=== PATIENT | female | born 1970 | race Caucasian/White ===

== ENCOUNTER 2017-02-14 02:46 | Emergency (ER) | payer OTHER ==
[~2017-02-14] VITALS: Ht 177.8 cm; Wt 143.3 kg
--- NOTE | ~2017-02-14 | EKG ---
[address] [address] ELECTROCARDIOGRAM REPORT Name: MERCEDES JANE Room #: [facility]#: [id number] Admission: 02/14/17 Attend Phys: Discharge: 02/14/17 Date of : 74 Report #: [id number] THIS REPORT FOR: //name// [facility] ED Test Date: 2017-02-14 Test Time: 03:09:58 Pat Name: MERCEDES JANE Department: Room: Gender: F Nutrition Assistant: ERNESTINA : 1970 Requested By: Yfn Kennedy Order Number: [id number] MD: Jones Rodriguez Measurements Intervals [place] Rate: 90 P: 45 [place]: 136 QRS: 43 QRSD: 93 T: 55 QT: 363 QTc: 444 Interpretive Statements Sinus rhythm No significant abnormality No previous ECG available for comparison Electronically Signed On 02-14-2017 8:58:21 CDT by Jones Rodriguez [email or web address] <ELECTRONICALLY SIGNED> By: Jones Rodriguez MD, [facility] 02/14/17 [phone] [id number] Jones Rodriguez MD, FACC /EPI
[2017-02-14] MEDS ORDERED: BUSPIRONE HCL10 MG PO (02:58)
[2017-02-14] MEDS ORDERED: ATORVASTATIN CA40 MG PO (02:58)
[2017-02-14] MEDS ORDERED: ABILIFY30 MG PO (02:58)
[2017-02-14] MEDS ORDERED: LEVOTHYROXINE0.05 MG PO (02:59)
[2017-02-14 03:30] LABS: ABSOLUTE NEUTROPHILS 7.4 thou/uL (1.4-8.2); BASOPHILS 1.3 % (0.0-2.0); EOSINOPHILS 1.9 % (0.0-3.0); HEMATOCRIT 38.4 % (37.0-47.0); HEMOGLOBIN 13.1 gm/dL (12.0-15.0); LYMPHOCYTES 36.4 % (24.0-44.0); MCH 29.8 pg (26.0-34.0); MCHC 34.1 g/dL (28.0-37.0); MCV 87.4 fL (80.0-100.0); MONOCYTES 6.4 % (1.0-8.0); PLATELET COUNT 414 thou/uL (150-400); RBC 4.39 mil/uL (4.20-5.00); RDW 13.9 % (10.5-14.5); WBC 13.7 thou/uL (4.0-11.0)
[2017-02-14 03:33] LABS: MANUAL DIFF NO
[2017-02-14 03:40] LABS: ANION GAP 9 mmol/L (7-16); BUN 14 mg/dL (7-18); CALCIUM 8.9 mg/dL (8.5-10.1); CHLORIDE 105 mmol/L (98-107); CO2 25 mmol/L (21-32); CREATININE 0.9 mg/dL (0.6-1.0); GLUCOSE 196 mg/dL (74-106); SODIUM 139 mmol/L (136-145)
[2017-02-14 03:58] LABS: ALKALINE PHOSPHATASE 106 U/L (46-116); NT-PRO BRAIN NAT PEPTIDE 7 pg/mL (<300); SGOT 19 U/L (15-37); SGPT 29 U/L (30-65); TOTAL BILIRUBIN 0.2 mg/dL (<0.1-1.0); TOTAL PROTEIN 6.8 g/dL (6.4-8.2); TROPONIN-I < 0.04 ng/mL (<0.04-0.07)
[2017-02-14] MEDS ORDERED: VENTOLIN HFA 1818 GM INH (04:03)
[2017-02-14] MEDS ORDERED: ATIVAN1 MG PO (04:03)
[2017-02-14 04:16] VITALS: BP 124/73
== END 2017-02-14 04:44 | disposition home or self-care (01) ==
LOC: ER 02:46
PROVIDERS: Emergency Medicine
DX: F41.0 Panic disorder [episodic paroxysmal anxiety] (principal); R19.7 Diarrhea, unspecified; R06.00 Dyspnea, unspecified; G47.30 Sleep apnea, unspecified; E11.9 Type 2 diabetes mellitus without complications; F17.210 Nicotine dependence, cigarettes, uncomplicated; F12.10 Cannabis abuse, uncomplicated; Z98.890 Other specified postprocedural states; Z88.8 Allergy status to other drugs, medicaments and biological substances